=== PATIENT | female | born 1985 | race Caucasian/White ===

== ENCOUNTER 2018-01-18 21:16 | Emergency (ER) | payer MEDICAID, OTHER ==
[2018-01-18] MEDS: IBUPROFEN 600 MG TAB PO (23:17)
[2018-01-18] MEDS ORDERED: BUPIVACAINE 0.25% (MPF) 10 ML 10 ML VIAL INJ (23:30)
[2018-01-19] MEDS: BUPIVACAINE 0.25% (MPF) 30 ML INJ INJ (00:12)
== END 2018-01-19 02:28 | disposition home or self-care (01) ==
LOC: FTE 21:16
DX: S61.011A Laceration without foreign body of right thumb without damage to nail, initial encounter (principal); J45.909 Unspecified asthma, uncomplicated; W25.XXXA Contact with sharp glass, initial encounter; Y92.009 Unspecified place in unspecified non-institutional (private) residence as the place of occurrence of the external cause
CPT/HCPCS: 12001; 99282-25

== ENCOUNTER 2018-01-22 12:38 | Emergency (ER) | payer MEDICAID | END 2018-01-22 13:57 | disposition home or self-care (01) | LOC: FTE 12:38 | DX: Z48.01 Encounter for change or removal of surgical wound dressing (principal); J45.909 Unspecified asthma, uncomplicated | CPT/HCPCS: 99281; Z7502 ==